=== PATIENT | female | born 1970 | race Caucasian/White ===

== ENCOUNTER 2022-05-15 10:26 | Outpatient (CLI) | payer BC ==
--- NOTE | 2022-05-15 13:05 | XRAY Report ---
PROCEDURE: Chest 2 View X-Ray INDICATIONS: COUGH,UNSPECIFIED TECHNIQUE: 2 views of the chest were acquired. COMPARISON: None FINDINGS: Surgical changes and devices: None. Lungs and pleura: No pleural effusions or pneumothorax. Lungs are clear. Mediastinum: Mediastinal contours are normal. Heart size is normal. Bones and chest wall: No suspicious bony abnormalities. Soft tissues appear unremarkable. IMPRESSION: No acute cardiopulmonary findings Reviewed by: Pedro Lawrence MD on 05/15/2022 12:04 PM [facility] Approved by: Pedro Lawrence MD on 05/15/2022 12:04 PM [facility] Station ID: [id number]
== END 2022-05-15 10:27 | disposition home or self-care (01) ==
LOC: DI 10:26
PROVIDERS: ATTEND Physician Assistant
DX: R05.9 Cough, unspecified (principal)

== ENCOUNTER 2023-06-10 12:30 | Outpatient (CLI) | payer OTHER ==
--- NOTE | 2023-06-10 15:51 | XRAY Report ---
PROCEDURE: Chest 2V INDICATIONS: BRONCHITIS TECHNIQUE: 2 views of the chest were acquired. COMPARISON: None. FINDINGS: Surgical changes and devices: None. Lungs and pleura: No pleural effusions or pneumothorax. Lungs are clear. Mediastinum: Mediastinal contours appear normal. Heart size is normal. Bones and chest wall: No suspicious bony lesions. Overlying soft tissues appear unremarkable. IMPRESSION: No acute cardiopulmonary process. Reviewed by: Ha Trevino MD on 06/10/2023 3:50 PM [facility] Approved by: Ha Trevino MD on 06/10/2023 3:50 PM [facility] Station ID: [id number]
== END 2023-06-10 12:45 | disposition home or self-care (01) ==
LOC: DI.N 12:30
PROVIDERS: ATTEND Physician Assistant Medical
DX: J40 Bronchitis, not specified as acute or chronic (principal)